=== PATIENT | female | born 1955 | race Two or more races ===

== ENCOUNTER 2019-08-04 07:59 | Observation (INO) | payer MEDICARE ==
[2019-08-04] MEDS ORDERED: GLYCOPYRROLATE 1 MG/5 ML VIAL ONE (08:04)
[2019-08-04] MEDS ORDERED: LIDOCAINE 2% INJ-PF (20 MG/ML) 2 ML AMPUL ONE (08:04)
[2019-08-04] MEDS ORDERED: ROCURONIUM BROMIDE INJ 50 MG/5 ML VIAL IV ONE (08:04)
[2019-08-04] MEDS ORDERED: NEOSTIGMINE METHYLSULFATE 10 MG/10 ML VIAL ONE (08:04)
[2019-08-04] MEDS ORDERED: NORMAL SALINE 1000 ML 1,000 ML IV ONE (08:23)
[2019-08-04 08:39] LABS: ABSOLUTE BASOPHILS # (AUTO) 0.1 10^3/uL (0.0-0.2); ABSOLUTE EOSINOPHILS # (AUTO) 0.2 10^3/uL (0.0-0.6); ABSOLUTE LYMPHOCYTES (AUTO) 1.3 10^3/uL (0.5-4.7); ABSOLUTE MONOCYTES (AUTO) 0.8 10^3/uL (0.1-1.4); BASOPHILS % (AUTO) 0.8 % (0-2); EOSINOPHILS % (AUTO) 1.4 % (0-6); HEMATOCRIT 40.1 % (36.0-47.0); HEMOGLOBIN 13.9 g/dL (12.0-15.5); LYMPHOCYTES % (AUTO) 9.9 % (13-45); MEAN CORPUSCULAR HEMOGLOBIN 29.1 pg (27.0-33.4); MEAN CORPUSCULAR HGB CONC 34.5 g/dL (32.0-36.0); MEAN CORPUSCULAR VOLUME 84 fl (80-97); MONOCYTES % (AUTO) 6.1 % (3-13); PLATELET COUNT 244 10^3/uL (150-450); RED BLOOD COUNT 4.76 10^6/uL (3.72-5.28); RED CELL DISTRIBUTION WIDTH 13.9 % (11.5-14.0); SEGMENTED NEUTROPHILS % (AUTO) 81.8 % (42-78); TOTAL CELLS COUNTED % (AUTO) 100 %; WHITE BLOOD COUNT 13.4 10^3/uL (4.0-10.5)
[2019-08-04] MEDS ORDERED: ONDANSETRON HCL INJ/PF 4 MG/2 ML SDV IV ONE (08:44)
[2019-08-04] MEDS ORDERED: MORPHINE SULFATE 10 MG/ML INJ IV ONE (08:44)
[2019-08-04 08:47] LABS: APPEARANCE,URINE SLIGHTLY-CLOUDY; BILIRUBIN,URINE NEGATIVE (NEGATIVE); COLOR,URINE AMBER; GLUCOSE, URINE NEGATIVE (NEGATIVE); KETONES,URINE 20 mg/dL (NEGATIVE); LEUKOCYTE ESTERASE,URINE NEGATIVE (NEGATIVE); NITRITE,URINE NEGATIVE (NEGATIVE); PROTEIN,URINE 30 mg/dL (NEGATIVE)
[2019-08-04 08:58] LABS: ALBUMIN 4.1 g/dL (3.5-5.0); ALKALINE PHOSPHATASE 72 U/L (38-126); ANION GAP 9 (5-19); ASPARTATE AMINO TRANSFERASE 20 U/L (14-36); BLOOD UREA NITROGEN 18 mg/dL (7-20); CALCIUM 8.9 mg/dL (8.4-10.2); CARBON DIOXIDE 28 mmol/L (22-30); CHLORIDE 102 mmol/L (98-107); GLUCOSE 148 mg/dL (75-110); POTASSIUM 3.7 mmol/L (3.6-5.0)
--- NOTE | 2019-08-04 09:36 | ER Document Report ---
ED General - General Chief Complaint: Vomiting Stated Complaint: VOMITING Time Seen by Provider: 08/04/19 08:35 Mode of Arrival: Ambulatory Information source: Patient - HPI Notes: Patient presents with approximately 3 days of intermittent lower abdominal cramping. It radiates across both sides of the abdomen. Nothing makes it better or worse. It has been moderate in intensity. She also has had some vomiting and some loose stool. No problems with urination. She denies any rashes. She has had some fever and chills. No known COVID virus exposure. - Related Data Allergies/Adverse Reactions: No Known Allergies Allergy (Verified 08/04/19 09:21) Past Medical History - General Information source: Patient - Social History Smoking Status: Never Smoker Frequency of alcohol use: None Drug Abuse: None Family History: Reviewed & Not Pertinent Patient has homicidal ideation: No Review of Systems - Review of Systems Constitutional: Chills, Fever Cardiovascular: denies: Chest pain, Palpitations Respiratory: denies: Cough, Short of breath -: Yes All other systems reviewed and negative Physical Exam - Vital signs Vitals: Temp 98.9 F 08/04/19 08:00 Interpretation: Normal - General General appearance: Appears well, Alert - HEENT Head: Normocephalic, Atraumatic Eyes: Normal Pupils: PERRL - Respiratory Respiratory status: No respiratory distress Chest status: Nontender Breath sounds: Normal Chest palpation: Normal - Cardiovascular Rhythm: Regular Heart sounds: Normal auscultation Murmur: No - Abdominal Inspection: Normal Distension: No distension Bowel sounds: Normal Tenderness: Tender - patient has bilateral lower quadrant tenderness to palpation with some voluntary guarding Organomegaly: No organomegaly - Back Back: Normal, Nontender - Extremities General upper extremity: Normal inspection, Nontender, Normal color, Normal ROM, Normal temperature General lower extremity: Normal inspection, Nontender, Normal color, Normal ROM, Normal temperature, Normal weight bearing. No: Franky's sign - Neurological Neuro grossly intact: Yes Cognition: Normal Orientation: AAOx4 [place] Coma Scale Eye Opening: Spontaneous [place] Coma Scale Verbal: Oriented [place] Coma Scale Motor: Obeys Commands [place] Coma Scale Total: 15 Speech: Normal Motor strength normal: LUE, RUE, LLE, RLE Sensory: Normal - Psychological Associated symptoms: Normal affect, Normal mood - Skin Skin Temperature: Warm Skin Moisture: Dry Skin Color: Normal Course - Re-evaluation Re-evalutation: 08/04/19 11:[address] scan returned showing findings concerning for acute cholecystitis. Patient is quite tender in the right upper quadrant does have an elevated white blood cell count. I have called and spoke with Dr. Reis who is going to see the patient in consultation in the emergency department. - Vital Signs Vital signs: Temp Pulse Resp BP Pulse Ox 98.9 F 08/04/19 08:00 - Laboratory Result Diagrams: 08/04/19 08:22 08/04/19 08:22 Laboratory results interpreted by me: 08/04/19 08/04/19 08/04/19 08:22 08:22 08:22 WBC 13.4 H Lymph % (Auto) 9.9 L Absolute Neuts (auto) 11.0 H Seg Neutrophils % 81.8 H Glucose 148 H Urine Protein 30 H Urine Ketones 20 H Urine Blood SMALL H Urine Urobilinogen 2.0 H - Diagnostic Test Radiology reviewed: Image reviewed, Reports reviewed Discharge - Discharge Clinical Impression: Cholecystitis Condition: Serious Disposition: ADMITTED INPATIENT Admitting Provider: Surgicalist Unit Admitted: OR
--- NOTE | 2019-08-04 11:21 | RADIOLOGY REPORT (SQ) ---
EXAM DESCRIPTION: CT ABD/PELVIS WITH IV ONLY IMAGES COMPLETED DATE/TIME: 08/04/2019 10:46 am REASON FOR STUDY: bilat lower quad pain COMPARISON: None. TECHNIQUE: CT scan of the abdomen and pelvis performed using helical scanning technique with dynamic intravenous contrast injection. No oral contrast. Images reviewed with lung, soft tissue, and bone windows. Reconstructed coronal and sagittal MPR images reviewed. Delayed images for evaluation of the urinary system also acquired. All images stored on PACS. All CT scanners at this facility use dose modulation, iterative reconstruction, and/or weight based d osing when appropriate to reduce radiation dose to as low as reasonably achievable (ALARA). [facility]: Dose Right [facility]: CareDose [facility]: Dose Right [facility]: Teradose 4D [facility]: Enterra Feed CONTRAST TYPE AND DOSE: Contrast/concentration: Isovue 350.00 mg/ml; Total Contrast Delivered: 100.0 ml; Total Saline Delivered: 72.0 ml RENAL FUNCTION: GFR > 60. RADIATION DOSE: CT Rad equipment meets quality standard of care and radiation dose reduction techniq ues were employed. CTDIvol: 14.8 - 19.0 mGy. DLP: 1969 mGy-cm. LIMITATIONS: None. FINDINGS: LOWER CHEST: No acute findings. LIVER: The morphology of the liver is noncirrhotic. The portal veins are patent. There are multiple hypodense hepatic lesions that range in size from less than 1 cm to 2 x 1.5 cm. SPLEEN: No splenomegaly or splenic mass. PANCREAS: No acute abnormality of the pancreas. GALLBLADDER: The gallbladder is distended and there is inflammatory stranding of the pericholecystic fat. The gallbladder wall is thickened and there is increased asymmetric enhancement of the mucosa in the region of the gallbladder neck. There ADRENAL GLANDS: No mass or asymmetry. RIGHT KIDNEY AND URETER: Parapelvic cysts and subcentimeter cortical-based hypodense lesions that are too small to characterize. There is no solid mass, hydronephrosis, nephrolithiasis, hydroureter or ureterolithiasis. LEFT KIDNEY AND URETER: Parapelvic cysts and subcentimeter cortical-based hypodense lesions that are too small to characterize. There is no solid mass, hydronephrosis, nephrolithiasis, hydroureter or u reterolithiasis. AORTA AND VESSELS: No aneurysm or dissection of the abdominal aorta. RETROPERITONEUM: No retroperitoneal adenopathy, hemorrhage or mass. BOWEL AND PERITONEAL CAVITY: No bowel obstruction, bowel wall thickening or pericolonic/ perienteric inflammation. No mesenteric adenopathy, free intraconal fluid or mesenteric/ omental inflammation. APPENDIX: Normal. PELVIS: Status post hysterectomy. There is no abnormality of the adnexa that is apparent on CT. The urinary bladder is partially distended ABDOMINAL WALL: Fat containing umbilical hernia. BONES: No fracture or osseous lesion. OTHER: No other finding. IMPRESSION: Findings as detailed above are concerning for an acute cholecystitis. TECHNICAL DOCUMENTATION: JOB ID: [id number] Quality ID # [id number]: Final reports with documentation of one or more dose reduction techniques (e.g., Au tomated exposure control, adjustment of the mA and/or kV according to patient size, use of iterative reconstruction technique) 2010 [employer]- All Rights Reserved Reading location - IP/workstation name: [email or web address]
[2019-08-04] MEDS ORDERED: NORMAL SALINE 1000 ML 1,000 ML IV PRN (11:59)
[2019-08-04] MEDS ORDERED: MORPHINE SULFATE 10 MG/ML INJ IV PRN (11:59)
[2019-08-04] MEDS ORDERED: ONDANSETRON HCL INJ/PF 4 MG/2 ML SDV IV PRN ×2 (11:59→14:36)
--- NOTE | 2019-08-04 12:12 | PDOC H&P ---
History of Present Illness Patient complains of: Right-sided abdominal pain History of Present Illness: LISS BORDEN I is a 64 year old female with a 2-day history of increasing right-sided abdominal pain. The patient has never experienced any symptom like this before. She is generally very healthy. 2 days ago she began to have "stomach upset". The pain has intensified over the last 48 hours. Now her pain is sharp and stabbing. She rates it as 8 out of 10. She has experienced nausea and vomiting. She denies fevers, chills, chest pain, cough, dyspnea, sick contacts (including COVID-19 patients/PUIs), dizziness, orthostasis, fatigue, malaise, headache. Nothing makes her pain better or worse. Past Medical History Psychiatric Medical History: Reports: Other - Fibromyalgia Past Surgical History Past Surgical History: Reports: Hysterectomy Social History Smoking Status: Never Smoker Frequency of Alcohol Use: None Hx Recreational Drug Use: No Hx Prescription Drug Abuse: No Family History Family History: Reviewed & Not Pertinent Parental Family History Reviewed: Yes Children Family History Reviewed: Yes Sibling(s) Family History Reviewed.: Yes Medication/Allergy Allergies/Adverse Reactions: No Known Allergies Allergy (Verified 08/04/19 09:21) Review of Systems Constitutional: ABSENT: anorexia, chills, fatigue, fever(s), weakness Eyes: ABSENT: visual disturbances Ears: ABSENT: hearing changes Nose, Mouth, and Throat: ABSENT: headache(s), sore throat Cardiovascular: ABSENT: chest pain Respiratory: ABSENT: cough, dyspnea Gastrointestinal: PRESENT: abdominal pain, nausea, vomiting. ABSENT: dysphagia, hematemesis, hematochezia, melena Genitourinary: ABSENT: dysuria Musculoskeletal: ABSENT: back pain Integumentary: ABSENT: pruritus, rash Neurological: ABSENT: confusion, convulsions, dizziness Psychiatric: ABSENT: anxiety, depression Endocrine: ABSENT: cold intolerance, heat intolerance Hematologic/Lymphatic: ABSENT: easy bleeding, easy bruising Physical Exam Vital Signs: Temp Pulse Resp BP Pulse Ox 98.9 F 08/04/19 08:00 Intake & Output 08/03/19 08/04/19 08/05/19 06:59 06:59 06:59 Intake Total 1000 Balance 1000 Weight 95.254 kg General appearance: PRESENT: no acute distress, cooperative, obese Head exam: PRESENT: atraumatic, normocephalic Eye exam: PRESENT: EOMI, PERRLA. ABSENT: scleral icterus Mouth exam: PRESENT: moist, neck supple Neck exam: ABSENT: meningismus, tenderness, thyromegaly, tracheal deviation, tracheostomy Respiratory exam: PRESENT: unlabored. ABSENT: tachypnea, wheezes Cardiovascular exam: ABSENT: tachycardia Vascular exam: PRESENT: normal capillary refill. ABSENT: pallor GI/Abdominal exam: PRESENT: Christianson's sign, soft, tenderness - Right upper quadrant. ABSENT: distended, firm Rectal exam: PRESENT: deferred Extremities exam: ABSENT: clubbing Musculoskeletal exam: ABSENT: deformity Neurological exam: PRESENT: alert, awake, oriented to person, oriented to place, oriented to time, oriented to situation, CN II-XII grossly intact. ABSENT: motor sensory deficit Psychiatric exam: ABSENT: agitated, anxious, depressed Focused psych exam: ABSENT: delusional Skin exam: ABSENT: cyanosis, erythema, jaundice Results Laboratory Results: 08/04/19 08:22 08/04/19 08:22 08/04/19 08/04/19 08/04/19 08:22 08:22 08:22 WBC 13.4 H RBC 4.76 Hgb 13.9 Hct 40.1 MCV 84 MCH 29.1 MCHC 34.5 RDW 13.9 Plt Count 244 Seg Neutrophils % 81.8 H Sodium 138.9 Potassium 3.7 Chloride 102 Carbon Dioxide 28 Anion Gap 9 BUN 18 Creatinine 0.74 Est GFR ( Amer) > 60 Glucose 148 H Calcium 8.9 Total Bilirubin 1.0 AST 20 Alkaline Phosphatase 72 Total Protein 7.0 Albumin 4.1 Lipase Urine Color JIN Urine Appearance SLIGHTLY-CLOUDY Urine pH 5.0 Ur Specific Howell 1.030 Urine Protein 30 H Urine Glucose (UA) NEGATIVE Urine Ketones 20 H Urine Blood SMALL H Urine Nitrite NEGATIVE Ur Leukocyte Esterase NEGATIVE Urine WBC (Auto) 3 Urine RBC (Auto) 7 08/04/19 08:22 WBC RBC Hgb Hct MCV MCH MCHC RDW Plt Count Seg Neutrophils % Sodium Potassium Chloride Carbon Dioxide Anion Gap BUN Creatinine Est GFR ( Amer) Glucose Calcium Total Bilirubin AST Alkaline Phosphatase Total Protein Albumin Lipase 36.7 Urine Color Urine Appearance Urine pH Ur Specific Howell Urine Protein Urine Glucose (UA) Urine Ketones Urine Blood Urine Nitrite Ur Leukocyte Esterase Urine WBC (Auto) Urine RBC (Auto) Impressions: Abdomen/Pelvis CT 08/04/19 08:43 IMPRESSION: Findings as detailed above are concerning for an acute cholecysti tis. Assessment & Plan - Diagnosis (1) Acute cholecystitis Is this a current diagnosis for this admission?: Yes - Plan Summary Plan Summary: This is a 64-year-old female with symptoms, laboratory evaluation, and radiologic imaging consistent with acute cholecystitis. I have reviewed the patient's CT scan. She has gallbladder wall thickening and pericholecystic fluid present. She has no evidence of intrahepatic or extrahepatic biliary ductal dilatation. Her bilirubin is normal. I will admit the patient, start her on intravenous antibiotics, and (pending her COVID-19 testing) plan for cholecystectomy RAF. This has been discussed with the patient and her family. They are in agreement with the treatment plan. Risks/benefits discussed, informed consent obtained, and all questions answered.
--- NOTE | 2019-08-04 12:49 | RADIOLOGY REPORT (SQ) ---
EXAM DESCRIPTION: CHEST SINGLE VIEW IMAGES COMPLETED DATE/TIME: 08/04/2019 12:32 pm REASON FOR STUDY: pre op COMPARISON: None. EXAM PARAMETERS: NUMBER OF VIEWS: One view. TECHNIQUE: An AP view of the chest was obtained. RADIATION DOSE: NA LIMITATIONS: None. FINDINGS: LUNGS AND PLEURA: No consolidation, pleural effusion or pneumothorax. MEDIASTINUM AND HILAR STRUCTURES: No mediastinal or hilar contour abnormality. HEART AND VASCULAR STRUCTURES: The cardiac silhouette and pulmonary vasculature are within normal turpin its. BONES: No acute findings. HARDWARE: None in the chest. OTHER: No other finding. IMPRESSION: No acute cardiopulmonary process. TECHNICAL DOCUMENTATION: JOB ID: [id number] 2010 [email or web address]- All Rights Reserved Reading location - IP/workstation name: [email or web address]
[2019-08-04] MEDS ORDERED: BUPIVACAINE HCL 0.25 % INJ/PF (2.5 MG/1 ML) 30 ML VIAL ONE (13:31)
[2019-08-04] MEDS ORDERED: PROPOFOL INJ 200 MG/20 ML VIAL IV ONE (13:54)
[2019-08-04] MEDS ORDERED: MIDAZOLAM 2 MG/2 ML INJ ONE (13:54)
[2019-08-04] MEDS ORDERED: HYDROMORPHONE HCL INJ/PF 2 MG/ML AMPULE ONE (13:54)
[2019-08-04] MEDS ORDERED: DIPHENHYDRAMINE HCL 50 MG/ML VIAL IV PRN (14:36)
[2019-08-04] MEDS ORDERED: MEPERIDINE HCL/PF INJ 25 MG/1 ML DISP.SYRIN IV PRN (14:36)
[2019-08-04] MEDS ORDERED: PROMETHAZINE HCL INJ 25 MG/1 ML VIAL IV PRN ×2 (14:36)
[2019-08-04] MEDS ORDERED: FENTANYL CITRATE INJ/PF 100 MCG/2 ML AMPUL IV PRN ×3 (14:36)
[2019-08-04] MEDS ORDERED: OXYCODONE-ACETAMINOPHEN 5-325 MG TABLET PO PRN ×2 (14:36)
[2019-08-04] MEDS ORDERED: CEFOXITIN 1 GM/D5W RTU 1 GM/50 ML RTUPB IV ONE ×2 (14:39→14:40)
--- NOTE | 2019-08-04 17:12 | Operative Report ---
Nonrecallable Operative Report DATE OF SURGERY: 08/04/19 PREOPERATIVE DIAGNOSIS: acute cholecystitis POSTOPERATIVE DIAGNOSIS: Acute gangrenous cholecystitis OPERATION: Laparoscopic cholecystectomy SURGEON: MIKEY YOUNG ANESTHESIA: GA TISSUE REMOVED OR ALTERED: Gallbladder COMPLICATIONS: None apparent ESTIMATED BLOOD LOSS: 50 cc PROCEDURE: Drains/implants: 15 Mauritian round Abel drain in the gallbladder fossa. Procedure in detail: After informed consent was obtained, the patient was brought to the operating room and laid in the supine position. The area of the abdomen was prepped and draped in a normal sterile fashion. A supraumbilical incision was created with a 15 blade scalpel. Dissection was carried through the subcutaneous tissues using sharp and blunt dissection. The linea alba fascia was incised sharply, the abdomen was entered sharply. The balloon trocar was inserted, and pneumoperitoneum was achieved. A subxiphoid 5 mm port was then placed under direct laparoscopic visualization. 2 more 5 mm trochars were placed in the right upper quadrant in similar fashion. Atraumatic graspers were placed through the 5 mm ports. The gallbladder was identified. It was tense, distended, acutely inflamed, with areas of patchy necrosis. The gallbladder was grasped and retracted cephalad. This ruptured the gallbladder, and a large amount of dark bilious fluid was released. This fluid was suctioned, and the abdomen was irrigated. The gallbladder was then easier to manipulate. The gallbladder was retracted cephalad, and dissection was begun at the infundibulum. There was a dense inflammatory reaction at the infundibulum. Sharp and blunt dissection was used to separate adhesions from the duodenum to the gallbladder. Once this was successful, the infundibulum was dissected free. There was a large stone impacted in the infundibulum. There was a very large amount of inflammation surrounding the cystic duct. Secondary to this it was felt prudent to avoid excessive dissection at the cystic duct (in an effort to avoid injury to the deeper ductal structures). After this was deci ded, the gallbladder was freed from the liver using a mixture of blunt dissection and electrocautery. The cystic artery was identified, clipped, and divided. Next, with the gallbladder free of the liver bed, the stone impacted at the neck of the gallbladder was examined and palpated. An attempt was made to extract the stone, however this was unsuccessful. A PDS Endoloop was then placed immediately above the impacted stone, and secured. Next, the remainder of the gallbladder was amputated. It was placed into an Endo Catch bag, and pulled out through the umbilicus. The camera was then reinserted. The hilum was inspected. It was found to be free of any leakage of blood or bile. The abdomen was then copiously irrigated and suctioned until the effluent was clear. A 15 Mauritian round Abel drain was placed into the gallbladder fossa. It was sutured into place using 2-0 nylon suture. The 5 mm trochars were then removed under direct laparoscopic visualization. The supraumbilical trocar was removed, and pneumoperitoneum was relieved. The supraumbilical fascia was closed using 0 Vicryl suture in [id number] fashion. The overlying skin was closed using 4-0 Vicryl Rapide suture in subcuticular fashion. Dressings were placed, and the procedure was concluded. All sponge, instrument, and needle counts were correct x2. Condition: Stable.
--- NOTE | 2019-08-04 19:29 | EKG REPORT ---
SEVERITY:- NORMAL ECG - SINUS RHYTHM : Confirmed by: Rene Ramirez MD 04-Aug-2019 19:28:18
[2019-08-04] MEDS: HYDROCODONE/ACETAMINOPHEN 10-325 MG TABLET PO PRN (22:32)
[2019-08-05] MEDS: HYDROCODONE/ACETAMINOPHEN 10-325 MG TABLET PO PRN (05:15)
[2019-08-05 05:31] LABS: ABSOLUTE EOSINOPHILS # (AUTO) 0.1 10^3/uL (0.0-0.6); ABSOLUTE LYMPHOCYTES (AUTO) 1.4 10^3/uL (0.5-4.7); ABSOLUTE MONOCYTES (AUTO) 0.6 10^3/uL (0.1-1.4); ABSOLUTE NEUT (AUTO) 6.5 10^3/uL (1.7-8.2); BASOPHILS % (AUTO) 0.5 % (0-2); EOSINOPHILS % (AUTO) 1.2 % (0-6); HEMATOCRIT 33.6 % (36.0-47.0); LYMPHOCYTES % (AUTO) 16.2 % (13-45); MEAN CORPUSCULAR HEMOGLOBIN 28.9 pg (27.0-33.4); MEAN CORPUSCULAR HGB CONC 34.2 g/dL (32.0-36.0); MEAN CORPUSCULAR VOLUME 84 fl (80-97); MONOCYTES % (AUTO) 7.5 % (3-13); PLATELET COUNT 218 10^3/uL (150-450); RED BLOOD COUNT 3.98 10^6/uL (3.72-5.28); RED CELL DISTRIBUTION WIDTH 13.8 % (11.5-14.0); SEGMENTED NEUTROPHILS % (AUTO) 74.6 % (42-78); TOTAL CELLS COUNTED % (AUTO) 100 %; WHITE BLOOD COUNT 8.7 10^3/uL (4.0-10.5)
[2019-08-05 05:32] LABS: HEMOGLOBIN 11.5 g/dL (12.0-15.5)
[2019-08-05 06:04] LABS: ALBUMIN 2.9 g/dL (3.5-5.0); ALKALINE PHOSPHATASE 53 U/L (38-126); ANION GAP 5 (5-19); ASPARTATE AMINO TRANSFERASE 23 U/L (14-36); BILIRUBIN,TOTAL 0.7 mg/dL (0.2-1.3); BLOOD UREA NITROGEN 17 mg/dL (7-20); CALCIUM 7.8 mg/dL (8.4-10.2); CARBON DIOXIDE 26 mmol/L (22-30); CHLORIDE 107 mmol/L (98-107); GLUCOSE 107 mg/dL (75-110); POTASSIUM 4.1 mmol/L (3.6-5.0); TOTAL PROTEIN 5.4 g/dL (6.3-8.2)
--- NOTE | 2019-08-05 07:42 | PDOC DISCHARGE SUMMARY ---
General - Admit/Disc Date/PCP Admission Date/Primary Care Provider: 08/04/19 12:04 Discharge Date: 08/05/19 - Discharge Diagnosis Final Diagnosis: Acute cholecystitis - Assessment Summary: Patient was admitted on 08/04/2019 with signs and symptoms of acute cholecystitis. She was taken to the operating room where she underwent a laparoscopic cholecystectomy. On postop day 1 she was doing well up tolerating a regular diet ready for discharge home. A drain was left in place and she will be discharged home with the drain. She will be followed up in 1 week in [place] [facility]. - Additional Information Resuscitation Status: Full Code Discharge Diet: As Tolerated Discharge Activity: Activity As Tolerated, No Lifting Over 10 Pounds Prescriptions: Tramadol HCl [Ultram 50 mg Tablet] 50 mg PO ASDIR PRN #20 tablet PRN Reason: Home Medications: Gabapentin [Neurontin 400 mg Capsule] 400 mg PO BID 08/04/19 Levothyroxine Sodium [Synthroid 0.088 mg Tablet] 0.088 mg PO Q6AM 08/04/19 Tramadol HCl [Ultram 50 mg Tablet] 50 mg PO ASDIR PRN #20 tablet 08/05/19 History of Present Illiness History of Present Illness: LISS BORDEN I is a 64 year old female Physical Exam Vital Signs: Temp Pulse Resp BP Pulse Ox 99.2 F 83 17 116/49 L 96 08/05/19 00:00 08/05/19 00:00 08/05/19 00:00 08/05/19 00:00 08/05/19 00:00 Intake & Output 08/04/19 08/05/19 08/06/19 06:59 06:59 06:59 Intake Total 1950 Output Total 140 Balance 1810 Weight 95 kg Results Laboratory Results: WBC 8.7 10^3/uL (4.0-10.5) 08/05/19 05:06 RBC 3.98 10^6/uL (3.72-5.28) 08/05/19 05:06 Hgb 11.5 g/dL (12.0-15.5) L D 08/05/19 05:06 Hct 33.6 % (36.0-47.0) L 08/05/19 05:06 MCV 84 fl (80-97) 08/05/19 05:06 MCH 28.9 pg (27.0-33.4) 08/05/19 05:06 MCHC 34.2 g/dL (32.0-36.0) 08/05/19 05:06 RDW 13.8 % (11.5-14.0) 08/05/19 05:06 Plt Count 218 10^3/uL (150-450) 08/05/19 05:06 Lymph % (Auto) 16.2 % (13-45) 08/05/19 05:06 Thurston % (Auto) 7.5 % (3-13) 08/05/19 05:06 Eos % (Auto) 1.2 % (0-6) 08/05/19 05:06 Baso % (Auto) 0.5 % (0-2) 08/05/19 05:06 Absolute Neuts (auto) 6.5 10^3/uL (1.7-8.2) 08/05/19 05:06 Absolute Lymphs (auto) 1.4 10^3/uL (0.5-4.7) 08/05/19 05:06 Absolute Monos (auto) 0.6 10^3/uL (0.1-1.4) 08/05/19 05:06 Absolute Eos (auto) 0.1 10^3/uL (0.0-0.6) 08/05/19 05:06 Absolute Basos (auto) 0.0 10^3/uL (0.0-0.2) 08/05/19 05:06 Seg Neutrophils % 74.6 % (42-78) 08/05/19 05:06 Sodium 138.0 mmol/L (137-145) 08/05/19 05:06 Potassium 4.1 mmol/L (3.6-5.0) 08/05/19 05:06 Chloride 107 mmol/L (98-107) 08/05/19 05:06 Carbon Dioxide 26 mmol/L (22-30) 08/05/19 05:06 Anion Gap 5 (5-19) 08/05/19 05:06 BUN 17 mg/dL (7-20) 08/05/19 05:06 Creatinine 0.61 mg/dL (0.52-1.25) 08/05/19 05:06 Est GFR ( Amer) > 60 (>60) 08/05/19 05:06 Est GFR (MDRD) Non-Af > 60 (>60) 08/05/19 05:06 Glucose 107 mg/dL (75-110) 08/05/19 05:06 Calcium 7.8 mg/dL (8.4-10.2) L 08/05/19 05:06 Total Bilirubin 0.7 mg/dL (0.2-1.3) 08/05/19 05:06 Direct Bilirubin 0.0 mg/dL (0.0-0.4) 08/05/19 05:06 Neonat Total Bilirubin Not Reportable 08/05/19 05:06 Neonat Direct Bilirubin Not Reportable 08/05/19 05:06 Neonat Indirect Bili Not Reportable 08/05/19 05:06 AST 23 U/L (14-36) 08/05/19 05:06 ALT 21 U/L (<35) 08/05/19 05:06 Alkaline Phosphatase 53 U/L (38-126) 08/05/19 05:06 Total Protein 5.4 g/dL (6.3-8.2) L 08/05/19 05:06 Albumin 2.9 g/dL (3.5-5.0) L 08/05/19 05:06 Lipase 36.7 U/L (23-300) 08/04/19 08:22 Urine Color JIN 08/04/19 08:22 Urine Appearance SLIGHTLY-CLOUDY 08/04/19 08:22 Urine pH 5.0 (5.0-9.0) 08/04/19 08:22 Ur Specific Rand 1.030 08/04/19 08:22 Urine Protein 30 mg/dL (NEGATIVE) H 08/04/19 08:22 Urine Glucose (UA) NEGATIVE mg/dL (NEGATIVE) 08/04/19 08:22 Urine Ketones 20 mg/dL (NEGATIVE) H 08/04/19 08:22 Urine Blood SMALL (NEGATIVE) H 08/04/19 08:22 Urine Nitrite NEGATIVE (NEGATIVE) 08/04/19 08:22 Urine Bilirubin NEGATIVE (NEGATIVE) 08/04/19 08:22 Urine Urobilinogen 2.0 mg/dL (<2.0) H 08/04/19 08:22 Ur Leukocyte Esterase NEGATIVE (NEGATIVE) 08/04/19 08:22 Urine WBC (Auto) 3 /HPF 08/04/19 08:22 Urine RBC (Auto) 7 /HPF 08/04/19 08:22 Squamous Epi Cells Auto 6 /HPF 08/04/19 08:22 Urine Mucus (Auto) MANY /LPF 08/04/19 08:22 Urine Ascorbic Acid NEGATIVE (NEGATIVE) 08/04/19 08:22 SARS-CoV-2 (PCR) NEGATIVE (NEGATIVE) 08/04/19 12:00 Impressions: Abdomen/Pelvis CT 08/04/19 08:43 IMPRESSION: Findings as detailed above are concerning for an acute cholecystitis. Chest X-Ray 08/04/19 11:48 IMPRESSION: No acute cardiopulmonary process.
[2019-08-05 09:09] VITALS: BP 123/51
== END 2019-08-05 09:25 | disposition home or self-care (01) ==
LOC: ER 07:59 → EH 12:04 → INTOOBSV 12:04 → 4S 17:59
PROVIDERS: ATTEND Surgery
DX: K81.0 Acute cholecystitis (principal); E66.9 Obesity, unspecified; M79.7 Fibromyalgia; Z03.818 Encounter for observation for suspected exposure to other biological agents ruled out; Z90.710 Acquired absence of both cervix and uterus; Z79.899 Other long term (current) drug therapy
CPT/HCPCS: 47562; 93005; 99285; 96361; 96374; 96375; 36415 ×2; 83690; 85025 ×2; 80053 ×2; 81001; 88304 ×2; 71045; 74177; 93010; 99140; 00790; U0003; J2250; J3490 ×3; J0694; J2270; J2710; J1170; J2405; J7030; J2704; A9270 ×2; 790; 87635; G0378